=== PATIENT | male | born 1970 | race Caucasian/White ===

== ENCOUNTER 2023-11-15 08:32 | Emergency (ER) | payer MEDICAID ==
[~2023-11-15] VITALS: Ht 165.1 cm; Wt 77.1 kg
[2023-11-15 08:49] VITALS: O2SAT 100
[2023-11-15] MEDS: ACETAMINOPHEN 325MG TABLET PO ONE (09:58)
[2023-11-15 11:42] VITALS: BP 126/78; PULSE 71; RESP 18; TEMP 98.7
== END 2023-11-15 13:26 | disposition home or self-care (01) ==
LOC: ER 08:32
DX: M54.50 Low back pain, unspecified (principal); M79.601 Pain in right arm; R51.9 Headache, unspecified; E11.9 Type 2 diabetes mellitus without complications; W11.XXXA Fall on and from ladder, initial encounter; Y93.89 Activity, other specified; Y92.89 Other specified places as the place of occurrence of the external cause; Y99.8 Other external cause status
CPT/HCPCS: 71250; 73080; 74176; 99284